=== PATIENT | male | born 1975 | race Caucasian/White ===

== ENCOUNTER 2016-09-01 18:39 | Emergency (ER) | payer OTHER ==
[~2016-09-01] VITALS: Ht 162.6 cm; Wt 70.5 kg
[~2016-09-01 18:39] MED LIST: BACTDS PO; CEPH-443 PO; CEPH500C PO; IBUP800T25 PO
[2016-09-01 18:44] VITALS: Ht 162.6 cm; Wt 70.5 kg
--- NOTE | 2016-09-01 19:24 | ERD ---
ER Documentation Chief Complaint Date/Time DATE: 09/01/16 TIME: 19:20 Chief Complaint Abscess from pimple x 5 days on right shoulder HPI 40-year-old male who presented emergency department for an abscess to right shoulder near right neck. Patient stated that this started 5 days ago and it started as a pimple. Also added that he pricked it 2 days ago. Denies headache, loss of consciousness, dizziness, blurry vision, changes in vision, photophobia, pain in eye movement, facial pain, ear pain, throat pain, difficulty swallowing, neck pain, neck stiffness, shoulder pain, chest pain, cough, hemoptysis, abdominal pain, back pain, loss of appetite, nausea, vomiting , hematochezia, diarrhea, constipation, urinary symptoms, bladder and bowel incontinences, extremity weakness, extremity tenderness, numbness or tingling sensation, difficulty walking, recent travel, recent exposure to illness, recent antibiotic use in the last 3 months, fever, chills. No known drug allergies. No past medical history. No surgical history. Not taking any prescription medication at home. 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 Right-handed. Smokes about 3-4 sticks of cigarettes a day. Denies use of alcoholic beverages, use of illegal drugs. ROS All systems reviewed and are negative except as per history of present illness. Medications Home Meds Active Scripts Hydrocodone/Acetaminophen ([place] 5-325 Tablet) 1 Each Tablet, 1 TAB PO Q6H Y for PAIN, #7 TAB Prov:JEREMIEILAYOLANDAADELEKYLAH F 09/01/16 Ibuprofen* (Motrin*) 800 Mg Tab, 800 MG PO Q8 Y for PAIN AND OR ELEVATED TEMP, # 30 TAB Prov:JEREMIEILAYOLANDAADELEKYLAH F 09/01/16 Sulfamethoxazole/Trimethoprim* (Bactrim Ds* Tablet) 1 Each Tablet, 1 TAB PO BID , #14 TAB Prov:PASILABANADELEKYLAH Damon 09/01/16 Cephalexin* (Keflex*) 500 Mg Capsule, 500 MG PO QID for 5 Days, CAP Prov:PASILABAN,ADELEAR F 09/01/16 Cephalexin* (Cephalexin*) 500 Mg Capsule, 500 MG PO Q6 for 3 Days, CAP Prov:BRY SIMMONS PA-C 01/13/15 Ibuprofen* (Motrin*) 800 Mg Tab, 800 MG PO Q6, #30 TAB Prov:DEION WILDEMERON Montiel PA-C 01/01/15 Cephalexin* (Keflex*) 500 Mg Capsule, 500 MG PO QID for 7 Days, CAP Prov:DEION WILDEMERON Montiel PA-C 01/01/15 Sulfamethoxazole-Trimethoprim* (Bactrim* DS) 800-160 Mg Tab, 1 TAB PO BID for 7 Days, TAB Prov:DEION WILDEMERON Montiel PA-C 01/01/15 Allergies Allergies: Coded Allergies: No Known Allergy (Unverified , 01/01/15) PMhx/Soc History of Surgery: No Anesthesia Reaction: No Hx Neurological Disorder: No Hx Respiratory Disorders: No Hx Cardiac Disorders: No Hx Psychiatric Problems: No Hx Miscellaneous Medical Probl: No Hx Alcohol Use: Yes Hx Substance Use: No Hx Tobacco Use: Yes Smoking Status: Light tobacco smoker Physical Exam Vitals Vital Signs Date Time Temp Pulse Resp B/P Pulse Ox O2 Delivery O2 Flow Rate FiO2 09/01/16 18:44 98.3 63 20 124/76 96 Physical Exam CONSTITUTIONAL: Well-appearing; well-nourished; in no apparent distress. HEAD: Normocephalic; atraumatic. EYES: Conjunctiva clear, sclera non-icteric, EOM intact. PERRL Ears: Hearing intact. EACs clear, TMs non-bulging, non-inflamed, translucent & mobile, ossicles normal appearance, No obstructions, no erythema, no discharges Nose: No obstructions. No polyps. No external lesions. Mucosa non-inflamed. No external lesions, septum and turbinates normal. No rhinorrhea. No discharges. Frontal sinus is non-tender to palpation. Maxillary sinus is non-tender to palpation. MOUTH: Moist mucous membranes, no lesion, no obstructions, no vesicles, no thrush, patent airway Throat: Uvula in midline. Right tonsil is +1 with no erythema, no exudate. Left tonsil is +1 with no erythema, no exudate. Tolerating secretions well. Good gag reflex. Patent airway. Neck: Supple, without lesions, bruits, or adenopathy. No mass. Thyroid non- enlarged and non-tender to palpation. Good and full range of motion of neck. No neck stiffness. CHEST: Symmetrical chest. Respirations even and not labored. No retractions noted. CARDIOVASCULAR: Normal S1, S2. RRR. No murmurs, gallops. RESPIRATORY: Normal chest excursion with respiration; breath sounds clear and equal bilaterally; no wheezes, rhonchi, or rales. Breathing even and unlabored. Speaking in clear, full, and complete sentences w/ ease. ABDOMEN: Normal bowel sounds normal. Soft, round, non-distended, non-guarding, no tenderness, no rebound, no organomegaly, no masses, no pulsating abdominal mass. No hernia. No peritoneal signs. : No CVA tenderness. BACK: Symmetrical shoulder. Spine is midline without deformity, tenderness. No evidence of trauma or deformity. PELVIS: Stable pelvis. No evidence of trauma or deformity. MUSCULOSKELETAL: Normal gait and station. No misalignment, asymmetry, crepitation, defects, tenderness, masses, effusions, decreased range of motion, instability, atrophy or abnormal strength or tone in the head, neck, spine, ribs , pelvis or extremities. No calf tenderness. NEUROVASCULAR: Distal pulses are present. Pedal pulse are present, equal, and normal. Capillary refills are < 2 seconds. NEUROLOGIC: Alert and oriented x4. Speaks full and clear sentences. Cranial Nerves II-XII normal. Sensation to pain, touch, and proprioception normal. Grossly unremarkable. No neurologic deficits. Romberg test is negative. PSYCHOLOGICAL: The patients mood and manner are appropriate. No hallucinations , delusions. Not SI. Not HI. Has the capacity to decide for self SKIN: Normal for age and ethnicity; warm; dry; good turgor; no apparent lesions or exudates. No rashes, hives, discoloration. Right trapezius muscle aspect has an abscess measuring approximately 3 x 3 cm in diameter. No induration. Has a dried scab. Patient stated that he has picked this 2 days ago. Has good and full range of motion of neck and spine. Right shoulder is good and full range of motion. Procedures/MDM Examination: Please see physical examination. Disease process, medical treatment was explained to the patient and family member. They verbalized understanding and agreed with the medical treatment, and follow-up care. Re-evaluation: Denies headache, dizziness, blurry vision, neck pain, shoulder pain, chest pain, back pain, abdominal pain, nausea, vomiting. No episode of emesis in the emergency department. Alert and oriented 4. Speaks full and clear sentences. Respirations even and unlabored. Lung sounds clear to auscultation. Active bowel sounds. There is no right upper/right lower/ epigastric/left upper/left lower abdominal tenderness and light and deep palpation. Negative on Rovsings sign. Negative Demetrius sign. Able to jump 5 times without developing right-sided abdominal pain. No peritoneal signs. Ambulatory with steady gait. No neurovascular deficits. No neurological deficits. No nuchal rigidity. No pain on eye movement. Extraocular movement of his eyes is within normal limits. Consultation:None. Differential diagnosis: Abscess versus cellulitis Medical decision makin-year-old male who presented emergency department for an abscess to right shoulder near right neck. Patient stated that this started 5 days ago and it started as a pimple. Also added that he pricked it 2 days ago. Patient's complaint, patient history about his complaint, my physical findings, my reevaluation are consistent my final diagnosis of abscess/ cellulitis. Case was discussed with supervising emergency room physician, Dr. Kalyan Sepulveda who agreed with my medical decision making to discharge the patient with Bactrim and Keflex, Motrin. Patient is hemodynamically stable to discharge. Medications prescribed are the following: Bactrim. Keflex. Motrin. Patient and family member are made aware of the side effects and adverse reactions of the medications prescribed. Instructed on when to seek emergent and medical attention in case allergic/anaphylactic reactions or severe side effects and or adverse reactions to medications. Patient and family member verbalized understanding. Patient instructed Instructed to follow-up with his PCP in 24-48 hours. Instructed to Call 911 for chest pain, shortness of breath. Advised to come back here in ED as soon as possible for severity of symptoms which includes but not limited to: any new symptoms; shortness of breath/difficulty of breathing; cardiovascular changes; severe gastrointestinal symptoms; signs and symptoms of bleeding and or infection; signs of compartment syndrome/neurovascular changes; neurological changes/deficits. Patient and family member verbalized understanding. Upon discharge, patient is alert and oriented x 4, speaks full and clear sentences, denies pain, has no neurological deficits, has no neurovascular deficits, difficulty of breathing. Breathing even and unlabored. Lung sounds are clear to auscultation. Not in distress. Appears comfortable. Ambulatory with steady gait. Appears satisfied with care provided here in ED. Departure Diagnosis: Primary Impression: Abscess Condition: Good Additional Instructions: Instructed to follow-up with his PCP in 24-48 hours. Instructed to Call 911 for chest pain, shortness of breath. Advised to come back here in ED as soon as possible for severity of symptoms which includes but not limited to: any new symptoms; shortness of breath/difficulty of breathing; cardiovascular changes; severe gastrointestinal symptoms; signs and symptoms of bleeding and or infection; signs of compartment syndrome/neurovascular changes; neurological changes/deficits. Patient and family member verbalized understanding. PARVEZ VILLALTA Sep 01, 2016 19:23
[2016-09-01] MEDS ORDERED: CEPH-443 PO (19:25)
[2016-09-01] MEDS ORDERED: IBUP800T25 PO (19:26)
[2016-09-01] MEDS ORDERED: SULF1TAB31 PO (19:26)
[2016-09-01] MEDS ORDERED: HYDR-906 PO (19:27)
== END 2016-09-01 19:50 | disposition home or self-care (01) ==
LOC: FTE 18:39
DX: L02.413 Cutaneous abscess of right upper limb (principal); F17.210 Nicotine dependence, cigarettes, uncomplicated
CPT/HCPCS: 99284

== ENCOUNTER 2016-12-18 20:08 | Emergency (ER) | payer SELFPAY ==
[~2016-12-18] VITALS: Ht 167.6 cm; Wt 69.0 kg
[~2016-12-18 20:08] MED LIST changes: +HYDR-906 PO; +SULF1TAB31 PO
[2016-12-18 20:35] VITALS: Ht 167.6 cm; Wt 69.0 kg
== END 2016-12-19 02:02 | disposition left against medical advice (07) ==
LOC: FTE 20:08
DX: Z53.21 Procedure and treatment not carried out due to patient leaving prior to being seen by health care provider (principal)